=== PATIENT | female | born 1995 | race Caucasian/White ===

== ENCOUNTER 2016-08-11 08:00 | Emergency (ER) | payer OTHER ==
[~2016-08-11] VITALS: Ht 165.1 cm; Wt 88.1 kg
[~2016-08-11 08:00] MED LIST: CEPHALEXIN250 MG; CLARITIN10 MG PO
[2016-08-11 09:11] LABS: BASOPHIL % 0.4 % (0-2); PLATELET COUNT 246 x10^3mcL (130-400); RED CELL DISTRIBUTION WIDTH 13.6 % (11.5-14.5)
[2016-08-11 09:20] LABS: CALCIUM 8.8 mg/dL (8.5-10.1); CARBON DIOXIDE 27.9 mmol/L (21-32); CHLORIDE SERUM 103 mmol/L (98-107); CREATININE SERUM 0.6 mg/dL (0.6-1.0); GFR1 > 60 mL/min; GLUCOSE SERUM 94 mg/dL (74-106); POTASSIUM SERUM 3.9 mmol/L (3.5-5.1); SODIUM SERUM 137 mmol/L (136-145)
[2016-08-11 09:25] LABS: ALBUMIN 3.6 g/dL (3.4-5.0); ALKALINE PHOSPHATASE 53 U/L (46-116); ALT/SGPT 12 U/L (14-59); AMYLASE 37 U/L (25-115); AST/SGOT 9 U/L (15-37); BILIRUBIN TOTAL 0.7 mg/dL (0.20-1.00); LIPASE 82 IU/L (73-393)
[2016-08-11 10:36] VITALS: BP 120/72
== END 2016-08-11 10:36 | disposition home or self-care (01) ==
LOC: ED 08:00
PROVIDERS: Emergency Medicine
DX: O26.891 Other specified pregnancy related conditions, first trimester (principal); R10.32 Left lower quadrant pain; Z3A.01 Less than 8 weeks gestation of pregnancy
CPT/HCPCS: 83880

== ENCOUNTER 2016-08-23 09:58 | Inpatient (IN) | payer OTHER ==
[~2016-08-23] VITALS: Ht 165.1 cm; Wt 90.4 kg
--- NOTE | 2016-08-23 10:08 | NUR ---
PT BIB [facility] DUE TO SEVERE ABD PAIN. PT WENT TO [place] PREVI[place] AND STATES THEY RULED OUT ANY INFECTION, UNABLE TO RULE OUT ECTOPIC DUE TO BEING ONLY 6 WEEKS . PT HAVING N/V BUT STATES SHE HAS REGULAR BM. PT FIRST AND TAKES VITAMINS REGULARLY. PT APPEARS SOMEWHAT PALE AND SHIVERING, BLANKET PROVIDED OR TEMP IS 99.6. PT ABD IS SOFT, ROUND, SYMMETRICAL AND TENDER TO PALPATION ON L GROIN/LLQ. PT IS ATTACHED TO GLASS CUT OFF TENDER AT THIS TIME. WILL CONTINUE TO MONITOR PT AT THIS TIME.
--- NOTE | 2016-08-23 10:25 | NUR ---
AT BEDSIDE FOR MSE.
--- NOTE | 2016-08-23 10:30 | NUR ---
ASSISTED PT TO RESTROOM TO PROVIDE URINE SAMPLE. NO INCIDENT OCCURED AT THIS TIME.
[2016-08-23 10:39] LABS: BASOPHIL % 0.1 % (0-2); PLATELET COUNT 178 x10^3mcL (130-400); RED CELL DISTRIBUTION WIDTH 13.5 % (11.5-14.5)
--- NOTE | 2016-08-23 10:39 | NUR ---
PT TAKEN TO ULTRASOUND VIA WHEELCHAIR AT THIS TIME.
[2016-08-23 10:41] LABS: microscopic required? NO
[2016-08-23 10:46] LABS: CALCIUM 8.3 mg/dL (8.5-10.1); CARBON DIOXIDE 23.7 mmol/L (21-32); CHLORIDE SERUM 103 mmol/L (98-107); CREATININE SERUM 0.7 mg/dL (0.6-1.0); GFR1 > 60 mL/min; GLUCOSE SERUM 98 mg/dL (74-106); POTASSIUM SERUM 3.4 mmol/L (3.5-5.1); SODIUM SERUM 135 mmol/L (136-145)
[2016-08-23 10:47] LABS: UA SPECIFIC GRAVITY 1.015 (1.005-1.035); urine erythrocyte NEGATIVE (NEGATIVE)
[2016-08-23 10:51] LABS: ALKALINE PHOSPHATASE 45 U/L (46-116); ALT/SGPT 13 U/L (14-59); AST/SGOT 14 U/L (15-37); LIPASE 73 IU/L (73-393); TOTAL PROTEIN, SERUM 6.4 g/dL (6.4-8.2)
[2016-08-23 10:52] LABS: ALBUMIN 3.3 g/dL (3.4-5.0)
--- NOTE | 2016-08-23 11:05 | NUR ---
BACK FROM US VIA W/C.
--- NOTE | 2016-08-23 12:40 | NUR ---
TEMP RECHECKED, ELEVATED, PT NOW MEETS SEPSIS CRITERIA. SEPSIS SHEET COMPLETED & DR. IRENE NOTIFIED. PT ALREADY RECEIVED TYLENOL. CANNOT RECEIVE MOTRIN D/T . BLANKET, SOCKS & SLIPPERS REMOVED & COOL CLOTHS APPLIED TO LEGS & FACE. ADDITIONAL NS LITERS ORDERED, 1ST LITER STILL INFUSING. ENTERED ADDITIONAL ORDERS PER SEPSIS PROCOTOL EXCEPT FOR CXR D/T PT'S .
--- NOTE | 2016-08-23 12:50 | NUR ---
LAB @ BEDSIDE FOR BLOOD CULTURE & LACTIC ACID.
--- NOTE | 2016-08-23 13:43 | NUR ---
FIRST 1 L BOLUS COMPLETE AT THIS TIME AND ZOSYN GIVEN. 2ND LITER INITIATED.
--- NOTE | 2016-08-23 14:20 | NUR ---
[facility] [place] NUM[place] [id number]
--- NOTE | 2016-08-23 14:26 | NUR ---
3 L BOLUS STARTING AT THIS TIME. WILL CONTINUE TO MONITOR AT THIS TIME.
--- NOTE | 2016-08-23 15:36 | NUR ---
REPORT GIVEN TO FLORINA CHILDERS 255, ALL QUESTIONS AND CONCERNS ADDRESSED. WILL ENDORSE ALL CARE UPON ARRIVAL.
--- NOTE | 2016-08-23 15:43 | NUR ---
US AT BEDSIDE FOR APPENDIX.
[2016-08-23 15:53] LABS: MAGNESIUM 1.7 mg/dL (1.8-2.4)
--- NOTE | 2016-08-23 15:53 | NUR ---
AT BEDSIDE FOR MSE.
[2016-08-23 15:55] LABS: CHOLESTEROL/HDL RATIO 1.8
[2016-08-23 16:00] LABS: T3 TOTAL 1.03 ng/mL
[2016-08-23 16:01] LABS: FREE T4 1.12 ng/dL (0.76-1.46); FREE THYROXINE INDEX 2.5 ug/dL (1.4-4.5); T4(THYROXINE) 7.5 ug/dL (4.7-13.3)
[2016-08-23] MEDS ORDERED: PRENATABS RX1 TAB (16:01)
[2016-08-23 16:02] LABS: AMPHETAMINE QUAL UR NONE DETECTED (NEG <=1000)
[2016-08-23 16:13] LABS: PHOSPHOROUS 2.3 mg/dL (2.5-4.9)
--- NOTE | 2016-08-23 16:40 | NUR ---
AT BEDSIDE FOR PELVIC EXAM. SWABS COLLECTED AND SENT TO LAB.
--- NOTE | 2016-08-23 16:52 | NUR ---
RECEIVED PT FROM ED VIA [facility], CAME IN DUE TO LLQ ABDOMINAL PAIN FOR ABOUT 6-7 WEEKS. AAX4. C/O 4/10 PRESSURE HEADACHE AND MILD DIZZINESS. NO SOB NOTED, LUNG SOUNDS CTA. C/O 4/10 PRESSURE CHEST PAIN ON DEEP BREATHING, NSR ON THE MONITOR. DENIES ABDOMINAL PAIN/NAUSEA/VOMITING AT THIS TIME. BOWEL SOUNDS ACTIVE. STATED THAT SHE HAS PRESSURE ON THE START OF HER URINATION. IV SITE ON THE LAC IS PATENT AND INTACT. SIDE RAILS UPX2. CALL LIGHT ON REACH
--- NOTE | 2016-08-23 17:01 | NUR ---
POST 3 L OF NS INFUSION GIVEN IN ER IS 98/68 AT 1700.
--- NOTE | 2016-08-23 17:10 | NUR ---
ENDORSED TO PRIMARY NURSE FLORINA FOR CONTINUITY OF CARE
[2016-08-23 17:11] VITALS: BP 98/68
[2016-08-23 17:14] VITALS: Ht 165.1 cm; Wt 90.4 kg
--- NOTE | 2016-08-23 18:39 | NUR ---
AAO TIMES 4. TELE # 12 SR. NO C/O PAIN. NO SOB. PT'S BOYFRIEND PRESENT. IV SITE CDI. SCD BLE.
--- NOTE | 2016-08-23 19:30 | NUR ---
PT IS ALERT AND ORIENTED. PLEASANT AND COOPERATIVE, LUNGS CLEAR ON AUSCULTATIONS BILATERALLY UPPER AND LOWER BASES. AMBULATORY. WITH BATHROOM PRIVILEGES. IT WAS REPORTED TO ME THAT SHE HAS ELEVATED TEMPERATURE TODAY AND SHE IS STILL. PT IS A 7 WEEKS .AND IS RECEIVING NS AT 175 ML PER HOUR INFUSING WELL. STILL GETTING ZOSYN AND FLAFYL IVPB ANTIBIOTIC. MADE COMFORTABLE IN BED. CALL LIGHT WITHIN EASY REACH.
--- NOTE | 2016-08-23 20:07 | NUR ---
T- 101.9F MEDICATED WITH TYLENOL 650 MG PO.
[2016-08-23 21:23] VITALS: BP 90/57
--- NOTE | 2016-08-24 05:17 | NUR ---
PT IS RESTING. HAD EPISODE OF ABDOMINAL PAIN AND WAS RELIEVED BY TYLENOL 650 MG. ALWAYS HAS LOW GRADE FEVER. STILL GETTING FLAGYL AND ZOSYN IVPB. WITHOUT ADVERSE REACTION NOTED. THE LATEST TEMEPERATURE IS 98.2F. MADE COMFORTABLE IN BED. CALL LIGHT WITHIN EASY REACH. BOYFRIEND IS AT BEDSIDE.
[2016-08-24 05:40] VITALS: BP 96/41
[2016-08-24 06:53] LABS: CALCIUM 7.7 mg/dL (8.5-10.1); CARBON DIOXIDE 20.9 mmol/L (21-32); CHLORIDE SERUM 107 mmol/L (98-107); CREATININE SERUM 0.6 mg/dL (0.6-1.0); GFR1 > 60 mL/min; GLUCOSE SERUM 83 mg/dL (74-106); MAGNESIUM 1.7 mg/dL (1.8-2.4); POTASSIUM SERUM 3.3 mmol/L (3.5-5.1); SODIUM SERUM 138 mmol/L (136-145)
[2016-08-24 06:59] LABS: BASOPHIL % 0.3 % (0-2); PLATELET COUNT 139 x10^3mcL (130-400); RED CELL DISTRIBUTION WIDTH 13.5 % (11.5-14.5)
--- NOTE | 2016-08-24 08:36 | NUR ---
AAO TIMES 4. TELE # 12 SR. VS'S STABLE. NO SOB. O2 SAT ON RA 98%. BS'S ACTIVE TIMES 4. C/O SLIGHT PAIN TO LOWER MIDDLE ABDOMEN AND LOWER LEFT ABDOMEN. ROBERTO HUNTLEY. IV SITE CDI. COOPERATIVE AND PLEASANT. SCD BLE. MEDICAL ROUNDS PERFORMED AT [address] LORA AND THE MEDICINE TEAM. PT WILL STAY TODAY FOR SURGICAL CONSULTS, SHE REMAINS NPO AT THIS TIME.
[2016-08-24 09:43] VITALS: BP 107/56
--- NOTE | 2016-08-24 11:06 | NUR ---
DR GRAY NOTIFIED ABOUT SERUM K OF 3.3.
[2016-08-24 14:16] VITALS: BP 111/59
[2016-08-24 17:26] VITALS: BP 106/61
--- NOTE | 2016-08-24 18:49 | NUR ---
AAO TIMES 4. NO C/O PAIN. NO SOB. TELE # 12 SR. VS'S STABLE. PT'S BOYFRIEND PRESENT, SUPPORTIVE. PT COOPERATIVE AND PLEASANT. IV SITE CDI.
[2016-08-24 18:57] VITALS: BP 98/45
--- NOTE | 2016-08-24 18:59 | NUR ---
#1 NS BOLUS FINISHED AT THIS TIME, BP IS 98/45, MAP IS 61, PULSE IS 81. 2ND UNIT OF NS BOLUS STARTED.
--- NOTE | 2016-08-24 20:18 | NUR ---
AWAKE AND VERBALLY RESPONSIVE. ABLE TO MAKE NEEDS KNOWN.SPOUSE AT BEDSIDE VERY SUPPORTIVE OF PATIENT'S PLAN OF CARE. PLLACED CALL LIGHT WITHIN REACH, INSTRUCTED TO CALL FOR ANY ASSITANCE NEEDED AND VERBALIZED UNDERSTANDING. DENIES ANY PAIN/DISCOMFORT AT THIS TIME. WILL CONTINUE TO MONITOR.
[2016-08-24 21:52] VITALS: BP 101/59
--- NOTE | 2016-08-25 00:10 | NUR ---
EYES CLOSED. NO FACIAL GRIMACING NOTED. RESPIRATION EVEN AND UNLABORED. NO S/S OF PAIN/DISCOMFORT AT THIS TIME.
[2016-08-25 05:38] LABS: PLATELET COUNT 153 x10^3mcL (130-400); RED CELL DISTRIBUTION WIDTH 13.8 % (11.5-14.5)
[2016-08-25 06:02] LABS: CALCIUM 8.1 mg/dL (8.5-10.1); CHLORIDE SERUM 107 mmol/L (98-107); CREATININE SERUM 0.6 mg/dL (0.6-1.0); GFR1 > 60 mL/min; GLUCOSE SERUM 95 mg/dL (74-106); POTASSIUM SERUM 3.6 mmol/L (3.5-5.1); SODIUM SERUM 139 mmol/L (136-145)
[2016-08-25 06:19] VITALS: BP 100/45
--- NOTE | 2016-08-25 06:29 | NUR ---
STILL WITH EPISODES OF NAUSEA BUT TOLERABLE . CONTINUES ON IVF NS AT 60ML/HR ORDERED. NO S/S OF ADVERSE REACTION NOTED FROM ATB THERAPY. ALL NEEDS ATTENDED. KEPT CLEAN AND DRY.
--- NOTE | 2016-08-25 08:05 | NUR ---
AM ROUND DONE BY VALREIO BANKS AND MEDICAL TEAM,PLAN TO CONT. WITH CURRENT TX AND CONSULT OBGYN. PT AGREED WITH PLAN.
[2016-08-25 08:24] VITALS: BP 88/55
--- NOTE | 2016-08-25 09:00 | NUR ---
RESTING IN BED IN NO DISTRESS. ALERT AND ORIENTED.VS WNL. NO C/O PAIN OR DISCOMFORT AT THIS TIME. IVF INFUSING WELL AND SITE CLEAR. CALL LIGHT WITHINREACH. WILLCONTINUE W/PLAN OF CARE.
[2016-08-25 09:56] LABS: BAND NEUTROPHIL 4 % (0-10); BASOPHIL 0 % (0-2); MONOCYTE 9 % (0-7); SEGMENTED NEUTROPHILS 44 % (37-75)
--- NOTE | 2016-08-25 12:32 | NUR ---
RESTING AT THIS TIME,FAMILY AT BEDSIDE. NODISTRESS.
[2016-08-25 12:34] VITALS: BP 99/51
[2016-08-25 14:42] VITALS: BP 99/51
--- NOTE | 2016-08-25 15:41 | NUR ---
Initial Nutrition Assessment Dx: Intractable Abdominal pain poss 2/2 Acute Appendicitis vs Ovarian cyst vs pyelonephritis; Intrauterine 6 wks Gestational Age PMHx: Obesity PSHx:None Labs: BG 95, BUN 5L, A1C 5.3, Mg 1.7L, WBC 2.6L, H/H 10.3/31L Meds: colace, mag-ox 400, neutra-phos, vitamin, NS, zofran Current Diet Order: Regular (08/24) PO Intakes: 0% pt refused lunch, 75% D (08/24); 60% B, will eat food from home for lunch later (08/25) Ht: 165.1cm,65". Wt: 199lbs, 90.4kg. BMI: 33.3 kg/m2 (>95th percentile, Obese) IBW: 125lb, 56.8 kg. %IBW: 159%. UBW: 180lbs x 6 week ago Age: 20 Y/O F Food Allergies: gluten, walnut Skin: intact. Ravindra:21 Edema: None noted GI:abd soft w/ bowel sounds active . Last BM:1 diarrhea (08/25) MD Consult: gluten intolerance, mother requesting for additional information Pt admitted w/ Intractable Abdominal pain poss 2/2 Acute Appendicitis vs Ovarian cyst vs pyelonephritis; Intrauterine 6 wks Gestational Age. As per doctor's progress note 08/25-Per nursing staff, no acute events overnight. Dr Sacnhez evaluated patient and stated no surgical intervention needed at this time, diet has been advanced accordingly. Dr. Conor HAMILTON evaluation still pending at this time, have contacted and will evalaute patient this evening. Will continue to monitor. Pt seen at bedside w/ family x3 present, pt was seen eating some fruit and salad, mother states the pt is "allergic to gluten and wheat", the pt states she has been having allergic reactions for the past 4-5 yrs, when she eats things like pizza and wheat " I get rashes on my face and neck", reports having had "a blood test" ordered by her PCP and the results showed allergies to walnuts and things "grown in the soil like wheat", when asked why the pt has not been seen by allergenist or GI doctor, the mother reports "I've been busy with life", the pt is C/O nausea and diarrhea today- denies other GI issues, pre- weight was 180lbs and has only seen a NPR not an [employer] TRUCK [employer], the NPR did not states anything in regards to expected wt gain, only to stay away from caffeine, both pt and mother state her wt gain is normal and that she is at a healthy wt to being with, the RD reviewed w/ pt and mother on identifying potential foods w/ gluten/walnuts and an overall general healthy diet for at bedside, educational handouts declined, the pt and mother were mildly receptive and engaged. The RD F/U w/ Dr. Fernández, he reports the pt will be D/C today. Problem with: N: Yes. V: None. D: Yes. C: None. Problem with: Chewing: None. Swallowing: None. Current Appetite: Fair Recent Weight Change: 19lbs gain. % Weight Change: 11 (Severe for wt gain expectations) Vitamin/Supplement Use: vitamins Diet at Home: 1-2 meals per day, eats gluten free bread and lots of fruits and chicken breast, does not eat regular meal times d/t work Physical Activity: goes to gym daily Education: none Estimated Nutritional Needs Based on IBW 125 lb, 56.8kg; CBW: 199lbs, 90.4kg Energy: 7983-5514 kcal/day (12-15 kcal/kg for 1st Trimester >150% of IBW) Protein: 62 g/day (1.1 g/kg for 1st Trimester) Fluid: 7846-0957 ml/day (12-15 ml/kg for Maintenance) or per MD Wt gain for 1st Trimester: 1-2 lbs total gained Nutrition Diagnosis 1. Food and nutrition related knowledge deficit related to no prior nutrition education on general healthy diet for 2/2 6 weeks , Obesity as evidenced by pt unable to state diet basics, mother requesting education at bedside, and BMI:33.3 Intervention 1. C/W Regular diet. Make food preference known. 2. F/U w/ outpt RD for further nutrition education and diet/lifestyle modifications. 3. Adjust zofran+ BM regimen PRN Monitor/Evaluate Goal: PO intakes to meet >/=75% of estimated needs w/ tolerance; Pt able to state 2 basics of the nutrition education Monitor: PO intakes/tolerance, labs, skin integrity, GI function, wt, nutrition knowledge F/U in 3-5 days as MODERATE risk (08/28-08/30)
--- NOTE | 2016-08-25 15:58 | NUR ---
1. C/W Regular diet. Make food preference known. 2. F/U w/ outpt RD for further nutrition education and diet/lifestyle modifications. 3. Adjust zofran+ BM regimen PRN
--- NOTE | 2016-08-25 15:58 | NUR ---
PT DC'D HOME IN NO DISTRESS. AWAKE,ALERT AND ORIENTED.NO CHANGES IN VS. HL REMOVED AND SITE CLEAR.DC INSTRUCTIONS REVIEWED WITH PT AND FAMILY. NO RX GIVEN. NO C/O PAIN OR DISCOMFORT AT THE TIME OF DC. PERSONAL BELONGINGS TAKEN HOME.
== END 2016-08-25 15:52 | disposition home or self-care (01) | DRG 566 ==
LOC: ED 09:58 → DU 14:50
PROVIDERS: Emergency Medicine; ADMIT Family Medicine
DX: O99.611 Diseases of the digestive system complicating pregnancy, first trimester (principal); E83.42 Hypomagnesemia; E83.39 Other disorders of phosphorus metabolism; E66.9 Obesity, unspecified; O23.591 Infection of other part of genital tract in pregnancy, first trimester; E87.6 Hypokalemia; Z68.32 Body mass index [BMI] 32.0-32.9, adult; O99.211 Obesity complicating pregnancy, first trimester; Z88.8 Allergy status to other drugs, medicaments and biological substances; Z91.02 Food additives allergy status
CPT/HCPCS: 80307; 84439; 87491; 87591; J2543; J3490; J7030; Q0092

== ENCOUNTER 2016-10-23 16:25 | Emergency (ER) | payer MEDICAID ==
[~2016-10-23 16:25] MED LIST changes: +PRENATABS RX1 TAB
[2016-10-23 17:25] LABS: microscopic required? YES; urine erythrocyte NEGATIVE (NEGATIVE)
[2016-10-23 19:14] VITALS: BP 102/64
== END 2016-10-23 19:14 | disposition home or self-care (01) ==
LOC: ED 16:25
PROVIDERS: Emergency Medicine
DX: O26.892 Other specified pregnancy related conditions, second trimester (principal); R10.9 Unspecified abdominal pain; Z3A.16 16 weeks gestation of pregnancy; Z88.8 Allergy status to other drugs, medicaments and biological substances; Z91.018 Allergy to other foods
CPT/HCPCS: Q0092

== ENCOUNTER 2018-12-16 16:19 | Emergency (ER) | payer MEDICAID ==
[~2018-12-16] VITALS: Ht 165.1 cm; Wt 91.6 kg
[2018-12-16 16:40] VITALS: Ht 165.1 cm; Wt 91.6 kg
[2018-12-16 19:07] VITALS: BP 103/72
== END 2018-12-16 19:07 | disposition home or self-care (01) ==
LOC: ED 16:19
DX: K80.70 Calculus of gallbladder and bile duct without cholecystitis without obstruction (principal); Z88.8 Allergy status to other drugs, medicaments and biological substances; Z91.018 Allergy to other foods; Z87.19 Personal history of other diseases of the digestive system
CPT/HCPCS: Q0092

== ENCOUNTER 2018-12-23 06:00 | Emergency (ER) | payer SELFPAY ==
[~2018-12-23] VITALS: Ht 162.6 cm; Wt 90.7 kg
[2018-12-23 06:58] LABS: PLATELET COUNT 262 x10^3mcL (130-400)
[2018-12-23 07:06] LABS: CALCIUM 8.7 mg/dL (8.5-10.1); CARBON DIOXIDE 22.9 mmol/L (21-32); CHLORIDE SERUM 103 mmol/L (98-107); CREATININE SERUM 0.8 mg/dL (0.6-1.0); GFR1 > 60 mL/min; GLUCOSE SERUM 151 mg/dL (74-106); POTASSIUM SERUM 3.2 mmol/L (3.5-5.1); SODIUM SERUM 138 mmol/L (136-145)
[2018-12-23 07:16] LABS: ALKALINE PHOSPHATASE 63 U/L (46-116); ALT/SGPT 31 U/L (14-59); AST/SGOT 10 U/L (15-37); C REACTIVE PROTEIN 0.6 mg/dL (<=0.9)
[2018-12-23 07:17] LABS: TOTAL PROTEIN, SERUM 8.4 g/dL (6.4-8.2)
[2018-12-23 07:18] LABS: FREE T4 1.3 ng/dL (0.76-1.46); FREE THYROXINE INDEX 3.2 ug/dL (1.4-4.5); T4(THYROXINE) 9.4 ug/dL (4.7-13.3)
[2018-12-23 07:20] LABS: microscopic required? NO
[2018-12-23 07:24] LABS: T3 TOTAL 1.28 ng/mL
[2018-12-23 07:47] LABS: UA SPECIFIC GRAVITY 1.015 (1.005-1.035); urine erythrocyte NEGATIVE (NEGATIVE)
[2018-12-23 08:24] LABS: CK-MB 0.6 ng/mL (0-3.6)
[2018-12-23 09:02] LABS: ERYTHROCYTE SED RATE 17 mm/hr (0-20)
[2018-12-23 10:49] VITALS: BP 99/58
== END 2018-12-23 10:49 | disposition home or self-care (01) ==
LOC: ED 06:00
PROVIDERS: Specialist
DX: K80.70 Calculus of gallbladder and bile duct without cholecystitis without obstruction (principal); Z87.19 Personal history of other diseases of the digestive system; Z91.018 Allergy to other foods; Z88.8 Allergy status to other drugs, medicaments and biological substances
CPT/HCPCS: 84439; J1885; J2405; J3010; J7030; Q0092

== ENCOUNTER 2019-01-15 23:38 | Emergency (ER) | payer SELFPAY ==
[~2019-01-15] VITALS: Ht 162.6 cm; Wt 91.2 kg
[2019-01-15 23:49] VITALS: Ht 162.6 cm; Wt 91.2 kg
[2019-01-16 03:46] VITALS: BP 107/70
== END 2019-01-16 03:46 | disposition home or self-care (01) ==
LOC: ED 23:38
DX: R10.811 Right upper quadrant abdominal tenderness (principal); R11.2 Nausea with vomiting, unspecified; R68.83 Chills (without fever); Z88.8 Allergy status to other drugs, medicaments and biological substances
CPT/HCPCS: J1885; J2270; J2405

== ENCOUNTER 2019-07-05 13:42 | Emergency (ER) | payer MEDICAID ==
[~2019-07-05] VITALS: Ht 162.6 cm; Wt 81.2 kg
[2019-07-05 14:11] VITALS: Ht 162.6 cm; Wt 81.2 kg
[2019-07-05 15:39] LABS: BASOPHIL % 0.3 % (0-2); PLATELET COUNT 303 x10^3mcL (130-400); RED CELL DISTRIBUTION WIDTH 14.3 % (11.5-14.5)
[2019-07-05 15:44] LABS: CARBON DIOXIDE 27.9 mmol/L (21-32); CHLORIDE SERUM 104 mmol/L (98-107); CREATININE SERUM 0.6 mg/dL (0.6-1.0); GFR1 > 60 mL/min; GLUCOSE SERUM 95 mg/dL (74-106); POTASSIUM SERUM 4.5 mmol/L (3.5-5.1); SODIUM SERUM 139 mmol/L (136-145)
[2019-07-05 15:48] LABS: ALBUMIN 3.9 g/dL (3.4-5.0); ALKALINE PHOSPHATASE 56 U/L (46-116); ALT/SGPT 35 U/L (14-59); AST/SGOT 13 U/L (15-37); BILIRUBIN TOTAL 0.6 mg/dL (0.20-1.00); LIPASE 116 IU/L (73-393)
[2019-07-05 20:48] VITALS: BP 127/69
== END 2019-07-05 20:48 | disposition home or self-care (01) ==
LOC: ED 13:42
PROVIDERS: Emergency Medicine
DX: R10.11 Right upper quadrant pain (principal); Z90.49 Acquired absence of other specified parts of digestive tract
CPT/HCPCS: 36415

== ENCOUNTER 2020-05-20 13:03 | Emergency (ER) | payer OTHER, SELFPAY ==
[2020-05-20 13:06] VITALS: BP 123/97; Ht 172.7 cm
== END 2020-05-20 13:40 | disposition left against medical advice (07) ==
LOC: ED 13:03
DX: O03.4 Incomplete spontaneous abortion without complication (principal); O99.611 Diseases of the digestive system complicating pregnancy, first trimester; Z90.49 Acquired absence of other specified parts of digestive tract; Z3A.01 Less than 8 weeks gestation of pregnancy; Z91.010 Allergy to peanuts; Z88.8 Allergy status to other drugs, medicaments and biological substances